=== PATIENT | male | born 1990 | race Caucasian/White ===

== ENCOUNTER 2019-05-21 16:45 | Emergency (ER) | payer OTHER ==
[~2019-05-21] VITALS: Ht 182.9 cm; Wt 72.7 kg
[2019-05-21 16:48] VITALS: TEMP 97.1
[2019-05-21 17:22] LABS: BASO # 0.1 (0.0-0.2); EOS # 0.4 (0.0-0.7); EOS % 5.3 % (0-4.0); GRAN # 3.4 (1.4-6.5); GRAN % 47.9 % (42.2-75.2); HEMATOCRIT 45.2 % (42.0-52.0); HEMOGLOBIN 16.1 g/dl (13.5-18.0); LYMPH # 2.6 (1.2-3.4); LYMPH % 36.5 % (20.0-51.0); MEAN CELL VOLUME 85 fl (80.0-100.0); MEAN CORPUSCULAR HEMOGLOBIN 30 pg (27.0-31.0); MEAN CORPUSCULAR HGB CONC 36 g/dl (33.0-37.0); MEAN PLATELET VOLUME 9.1 fl (7.4-10.4); MONO # 0.6 (0.1-0.6); MONO % 8.9 % (1.7-9.3); PLATELET COUNT 311 K/mm3 (130-400); RED BLOOD COUNT 5.32 M/mm3 (4.20-5.60)
[2019-05-21 17:38] LABS: ALANINE AMINOTRANSFERASE 70 U/L (21-72); ALBUMIN 5.2 gm/dL (3.5-5.0); ALKALINE PHOSPHATASE 100 U/L (50-136); ANION GAP 16 mmol/L (7-16); AST,SGOT 40 U/L (15-37); BILIRUBIN,TOTAL 0.8 mg/dL (0.0-1.0); BLOOD UREA NITROGEN 10 mg/dL (9-20); CALCIUM 10.5 mg/dL (8.4-10.2); CARBON DIOXIDE 25 mmol/L (22-30); CHLORIDE 100 mmol/L (98-107); CREATININE, serum 0.79 (0.66-1.25); GLUCOSE 102 mg/dL (74-106); LIPASE 60 U/L (23-300); POTASSIUM 3.6 mmol/L (3.4-5.0); SODIUM 140 mmol/L (137-145); TOTAL PROTEIN 8.4 gm/dL (6.4-8.2)
[2019-05-21 17:42] LABS: C-REACTIVE PROTEIN < 0.5 mg/dL (0.0-0.9)
[2019-05-21 17:49] LABS: TROPONIN-I < 0.012 ng/mL (0.000-0.035)
[2019-05-21] MEDS ORDERED: ATIVAN 0.50.5 MG/TAB PO (17:57)
[2019-05-21 18:10] VITALS: BP 132/86; PULSE 107
== END 2019-05-21 18:10 | disposition home or self-care (01) ==
LOC: COL.ER 16:45
PROVIDERS: Emergency Medicine
DX: F41.9 Anxiety disorder, unspecified (principal); R07.89 Other chest pain

== ENCOUNTER → 2022-11-28 | Outpatient (CLI) | payer BC ==
[~2022-11-28] MED LIST: ATIVAN 0.50.5 MG/TAB PO
== END ==
LOC: COL.RAD 08:10
DX: K76.0 Fatty (change of) liver, not elsewhere classified (principal)
CPT/HCPCS: Q9967